=== PATIENT | male | born 1970 | race Caucasian/White ===

== ENCOUNTER 2023-06-25 21:17 | Emergency (ER) | payer BC ==
[2023-06-25] MEDS ORDERED: TENECTEPLASE 50 MG/10 ML VIAL IV ONE (21:45)
--- NOTE | 2023-06-25 21:47 | EDPHYS ---
Physician Documentation [facility] Name: Joel Rodríguez Age: 53 yrs Sex: Male : 1970 Arrival Date: 06/25/2023 Time: 21:17 Bed 2 Private MD: ED Physician Kp Bowman HPI: 06/25 21:22 This 53 yrs old Male presents to ER via Unassigned with complaints of chest sp4 pain . 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 . Historical: - Allergies: 21:24 No Known Allergies; as6 - PMHx: 21:24 Hypertensive disorder; Diabetes mellitus; as6 - PSHx: 21:24 None; as6 - Immunization history:: Client reports receiving the 2nd dose of the Covid vaccine, [employer]. - Social history:: Smoking status: Patient denies any tobacco usage or history of. - Family history:: not pertinent. ROS: 21:38 Constitutional: Negative for fever, chills, and weight loss, Cardiovascular: Negative sp4 for palpitations, and edema, Positive chest pain, diaphoresis, dyspnea, generalized weakness 21:38 All other systems are negative. Exam: 21:38 Constitutional: This is a well developed, well nourished patient who is awake, alert, sp4 pale, diaphoretic, unwell uppearting, blood pressure stable Head/Face: Normocephalic, atraumatic. Eyes: Pupils equal round and reactive to light, extra-ocular motions intact. Lids and lashes normal. Conjunctiva and sclera are not injected. Cornea within normal limits. Periorbital areas with no swelling, redness, or edema. ENT: Nares patent. No nasal discharge, no septal abnormalities noted. Tympanic membranes are normal and external auditory canals are clear. Oropharynx with no redness, swelling, or masses, exudates, or evidence of obstruction, uvula midline. Mucous membranes moist. Neck: Trachea midline, no thyromegaly or masses palpated, and no cervical lymphadenopathy. Supple, full range of motion without nuchal rigidity, or vertebral point tenderness. Chest/axilla: Normal chest wall appearance and motion. Nontender with no deformity. No lesions are appreciated. Cardiovascular: Regular rate and rhythm with a normal S1 and S2. No gallops, murmurs, or rubs. Normal PMI, no JVD. No pulse deficits. Respiratory: Lungs have equal breath sounds bilaterally, clear to auscultation and percussion. No rales, rhonchi or wheezes noted. No increased work of breathing, no retractions or nasal flaring. Abdomen/GI: Soft, non-tender, with normal bowel sounds. No distension or tympany. No guarding or rebound. No evidence of tenderness throughout. Back: No spinal tenderness. No costovertebral tenderness. Skin: Warm, with normal turgor. Pale, diaphoretic, no lesions, and no evidence of cellulitis. MS/ Extremity: Pulses equal, no cyanosis. Neurovascular intact. Full, normal range of motion. Neuro: Awake and alert, GCS 15, oriented to person, place, time, and situation. Cranial nerves II-XII grossly intact. Motor strength 5/5 in all extremities. Sensory grossly intact. Psych: Awake, alert, with orientation to person, place and time. Behavior, mood, and affect are within normal limits 21:38 ECG was reviewed by the Attending Physician. 21:30 - Positive ST elevation v 1, V2, sp4 V3, V4. Consistent with Anterior STEMI Vital Signs: 21:24 Weight 110.68 kg (R); Height 5 ft. 11 in. (R); Pain 5/10; as6 21:32 BP 157 / 94; cm10 21:36 BP 144 / 93; Pulse 75; Resp 18; Pulse Ox 100% on R/A; cm10 21:45 BP 145 / 100; Pulse 82; Resp 18; Pulse Ox 100% ; cm10 21:51 BP 164 / 102; Pulse 81; Resp 18; Pulse Ox 100% on 2 lpm NC; cm10 21:24 Body Mass Index 34.03 (110.68 kg, 180.34 cm) as6 21:24 Pain Scale: Adult as6 21:51 Pt on O2 for comfort. cm10 MDM: 21:24 Patient medically screened. sp4 21:46 Differential Diagnosis altered mental status, sepsis, flu. Data reviewed: vital signs, sp4 nurses notes, EMS record, lab test result(s), EKG, radiologic studies, plain films. 21:49 Consideration of Admission/Observation Patient was admitted/placed on observation. sp4 Escalation of care including admission/observation considered. Management of patient was discussed with the following: Blanket Cutter Hand: JARETT Parham MD . ED course: Patient presents with acute moderate to severe midsternal chest pain, initial EKG at 2117 revealed no sign of ST elevation. Subsequent EKG at [address] elevations in V1 V2 V3 V4. 1 mm each elevation. TNKase was administered at 0. Repeat EKG reveals persistent ST elevations V1 V2 V3. At this time we will looking into transferring patient secondary to no availability of Copper Etcher at this time at [facility]. I did confirm with monomer recovery operator and I was informed that Copper Etcher is not available at nighttime. At this time looking to send patient to [facility] at [facility] for acute anterior/septal STEMI. . 22:01 ED course: . sp4 22:02 ED course: Aeromedical transport is here at 2. Patient stable for medical transport. sp4 Chest pain is improved after IV morphine. All questions by patient and his family were answered. . 22:13 ED course: Troponin elevated at 84, chest x-ray did not reveal acute pulmonary edema. sp4 But revealed enlargement of cardiac silhouette. 06/25 21:22 Order name: Basic Metabolic Panel; Complete Time: 22:12 sp4 06/25 21:22 Order name: CBC with Diff; Complete Time: 22:12 sp4 06/25 21:22 Order name: LFT's; Complete Time: 22:12 sp4 06/25 21:22 Order name: Magnesium; Complete Time: 22:12 sp4 06/25 21:22 Order name: NT PRO-BNP; Complete Time: 22:12 sp4 06/25 21:22 Order name: PT-INR; Complete Time: 22:12 sp4 06/25 21:22 Order name: Troponin HS; Complete Time: 22:12 sp4 06/25 21:22 Order name: XRAY Chest (1 view); Complete Time: 03:56 sp4 06/25 21:22 Order name: EKG; Complete Time: 21:23 sp4 06/25 21:22 Order name: Cardiac monitoring; Complete Time: 21:31 sp4 06/25 21:22 Order name: EKG - Nurse/Tech; Complete Time: 21:27 sp4 06/25 21:22 Order name: IV Saline Lock; Complete Time: 21:27 sp4 06/25 21:22 Order name: Labs collected and sent; Complete Time: 21:31 sp4 06/25 21:22 Order name: O2 Per Protocol; Complete Time: : sp4 06/25 21:22 Order name: O2 Sat Monitoring; Complete Time: :27 sp4 EC:38 Rate is 73 beats/min. Rhythm is regular, Sinus Rhythm. QRS [place] is Normal. QT interval sp4 is normal. ST Segment is elevated in leads V1, V2, V3, V4, 1-2mm. Clinical impression: Anterior VA - acute. Interpreted by me. Reviewed by me. Administered Medications: 21:40 Drug: Tenecteplase IV 50 mg {Co-Signature: nikunj (Amber Madden RN).} Route: IV; as6 Rate: bolus; Site: right forearm; 22:17 Follow up: Response: No adverse reaction cm10 22:18 Follow up: Response: No adverse reaction; IV Intake: 10ml cm10 22:18 Follow up: IV Status: Completed infusion cm10 21:45 Drug: NS 0.9% IV 1000 ml Route: IV; Rate: 1 bolus; Site: right forearm; as6 22:17 Follow up: Response: No adverse reaction; IV Status: Completed infusion; IV Intake: cm10 500ml 21:45 Drug: morphine IVP or IV 4 mg Route: IVP; Infused Over: 4 mins; Site: right forearm; as6 22:17 Follow up: Response: No adverse reaction cm10 21:45 Drug: Ondansetron IVP 4 mg Route: IVP; Site: right forearm; as6 22:17 Follow up: Response: No adverse reaction cm10 22:00 Drug: morphine IVP or IV 4 mg Route: IVP; Infused Over: 4 mins; Site: left antecubital; cm10 22:17 Follow up: Response: No adverse reaction cm10 22:00 Drug: Ondansetron IVP 4 mg Route: IVP; Site: left antecubital; cm10 22:17 Follow up: Response: No adverse reaction cm10 Disposition Summary: 06/25/23 21:46 Transfer Ordered Transfer Location: [facility] sp4 Reason: Higher level of care sp4 Condition: Stable sp4 Problem: new sp4 Symptoms: have improved sp4 Accepting Physician: [facility] Main (06/25/23 22:22) cm10 Diagnosis - ST elevation (STEMI) myocardial infarction involving left anterior descending sp4 coronary artery Forms: - Medication Reconciliation Form sp4 - SBAR form sp4 Critical care time excluding procedures: 21:49 Critical care time: Bedside Care: 36 minutes, Consultation: 12 minutes, Family sp4 Intervention: 12 minutes. Total time: 60 minutes Signatures: Dispatcher [employer] EDNicanor Rehman RN RN as6 Kp Bowman MD MD sp4 Amber Madden RN RN cm10 Amber Madden RN cm10 Corrections: (The following items were deleted from the chart) 22:22 21:46 [facility] sp4 cm10
--- NOTE | 2023-06-25 21:47 | ER ---
Nurse's Notes [facility] Name: Joel Rodríguez Age: 53 yrs Sex: Male : 1970 Arrival Date: 06/25/2023 Time: 21:17 Bed 2 Private MD: Diagnosis: ST elevation (STEMI) myocardial infarction involving left anterior descending coronary artery Presentation: 06/25 21:24 Chief complaint: EMS states: chest pain that started this evening. Coronavirus screen: as6 At this time, the client does not indicate any symptoms associated with coronavirus-19. Ebola Screen: No symptoms or risks identified at this time. Initial Sepsis Screen: Does the patient meet any 2 criteria? No. Patient's initial sepsis screen is negative. Does the patient have a suspected source of infection? No. Patient's initial sepsis screen is negative. Risk Assessment: Do you want to hurt yourself or someone else? Patient reports no desire to harm self or others. Onset of symptoms was June 25, 2023. Care prior to arrival: Medication(s) given: ASA, 81 mg, x 4, Nitroglycerin, 0.4 mg SL x 1, IV initiated. 20 GA, in the left antecubital area. 21:24 Acuity: LATRICE 2 as6 21:24 Method Of Arrival: EMS: [facility] as6 Triage Assessment: 21:32 General: Appears in no apparent distress. Behavior is calm, cooperative. Pain: cm10 Complains of pain in left sided chest Quality of pain is described as aching, Pain began suddenly. Neuro: No deficits noted. Level of Consciousness is awake, alert, obeys commands, Oriented to person, place, time, situation. Cardiovascular: Chest pain. Cardiovascular:. Respiratory: No deficits noted. Derm: Skin is clammy, diaphoretic. Historical: - Allergies: 21:24 No Known Allergies; as6 - PMHx: 21:24 Hypertensive disorder; Diabetes mellitus; as6 - PSHx: 21:24 None; as6 - Immunization history:: Client reports receiving the 2nd dose of the Covid vaccine, [employer]. - Social history:: Smoking status: Patient denies any tobacco usage or history of. - Family history:: not pertinent. Screenin:00 [facility] ED Fall Risk Assessment (Adult) History of falling in the last 3 months, cm10 including since admission No falls in past 3 months (0 pts) Confusion or Disorientation No (0 pts) Intoxicated or Sedated No (0 pts) Impaired Gait No (0 pts) Mobility Assist Device Used No (0 pt) Altered Elimination No (0 pt) Score/Fall Risk Level 0 - 2 = Low Risk Oriented to surroundings, Maintained a safe environment, Hourly rounding (assess needs \T\ fall precautionary measures) done. Abuse screen: Denies threats or abuse. Denies injuries from another. Nutritional screening: No deficits noted. Nutritional screening: No deficits noted. Tuberculosis screening: No symptoms or risk factors identified. Assessment: 21:25 Cardiovascular:. cm10 21:56 Reassessment: Pt reports that his chest pain has not improved. cm10 22:00 Reassessment: [facility] at bedside at this time. Report given to Jr. cm10 22:01 General: attempted to call report, no answer. as6 22:12 Reassessment: Pt leaving via [facility] at this time. Pt's family aware that patient nikunj is to be transferred to [facility] [place], [place]. 22:16 Reassessment: Report given to THAD Cuevas at [facility]. cm10 Vital Signs: 21:24 Weight 110.68 kg (R); Height 5 ft. 11 in. (R); Pain 5/10; as6 21:32 BP 157 / 94; cm10 21:36 BP 144 / 93; Pulse 75; Resp 18; Pulse Ox 100% on R/A; cm10 21:45 BP 145 / 100; Pulse 82; Resp 18; Pulse Ox 100% ; cm10 21:51 BP 164 / 102; Pulse 81; Resp 18; Pulse Ox 100% on 2 lpm NC; cm10 21:24 Body Mass Index 34.03 (110.68 kg, 180.34 cm) as6 21:24 Pain Scale: Adult as6 21:51 Pt on O2 for comfort. cm10 ED Course: 21:21 Patient arrived in ED. rv1 21:22 Kp Bowman MD is Attending Physician. sp4 21:24 Arm band placed on. as6 21:25 Client placed on continuous cardiac and pulse oximetry monitoring. NIBP monitoring cm10 applied. 21:27 Triage completed. as6 21:31 Inserted saline lock: 18 gauge in right forearm, using aseptic technique. Blood as6 collected. Maintain EMS IV. Dressing intact. Good blood return noted. Site clean \T\ dry. Gauge \T\ site: 20g LAC. 21:[address] [facility], No Answer. rv1 21:[address] [facility], No Answer. rv1 21:39 Initiated transfer with Carmen at [facility]. rv1 21:40 Oxygen administration via nasal cannula \T\ 2L/min Response to oxygen therapy:. cm10 21:45 Patient has correct armband on for positive identification. Call light in reach. Side cm10 rails up X2. Provided Education on: Need for transfer to another facility. . 21:56 XRAY Chest (1 view) In Process Unspecified. EDMS 21:56 Pt accepted to [facility] [place] [place] by Dr. Landeros. rv1 22:21 No provider procedures requiring assistance completed. Patient transferred, IV remains cm10 in place. Administered Medications: 21:40 Drug: Tenecteplase IV 50 mg {Co-Signature: cm10 (Amber Madden RN).} Route: IV; as6 Rate: bolus; Site: right forearm; 22:17 Follow up: Response: No adverse reaction cm10 22:18 Follow up: Response: No adverse reaction; IV Intake: 10ml cm10 22:18 Follow up: IV Status: Completed infusion cm10 21:45 Drug: NS 0.9% IV 1000 ml Route: IV; Rate: 1 bolus; Site: right forearm; as6 22:17 Follow up: Response: No adverse reaction; IV Status: Completed infusion; IV Intake: cm10 500ml 21:45 Drug: morphine IVP or IV 4 mg Route: IVP; Infused Over: 4 mins; Site: right forearm; as6 22:17 Follow up: Response: No adverse reaction cm10 21:45 Drug: Ondansetron IVP 4 mg Route: IVP; Site: right forearm; as6 22:17 Follow up: Response: No adverse reaction cm10 22:00 Drug: morphine IVP or IV 4 mg Route: IVP; Infused Over: 4 mins; Site: left antecubital; cm10 22:17 Follow up: Response: No adverse reaction cm10 22:00 Drug: Ondansetron IVP 4 mg Route: IVP; Site: left antecubital; cm10 22:17 Follow up: Response: No adverse reaction cm10 Medication: 22:21 VIS not applicable for this client. cm10 Intake: 22:17 IV: 500ml; Total: 500ml. cm10 22:18 IV: 10ml; Total: 510ml. cm10 Outcome: 21:46 ER care complete, transfer ordered by . spJohn 22:21 Transferred by helicopter to [facility] [place] [place], Transfer form completed. X-rays sent cm10 w/ patient. 22:21 Condition: stable 22:21 Instructed on the need for transfer. 22:22 Patient left the ED. cm10 Signatures: Dispatcher [employer] EDNicanor Rehman RN RN as6 Kenna Crespo rv1 Kp Bowman MD MD sp4 Amber Madden, THAD RN cm10 Amber Madden RN cm10
[2023-06-25 21:53] LABS: Absolute Lymphocytes (CBC) 3.5 K/uL (0.7-4.9); Hematocrit 46.1 % (39.6-49.0); Lymphocytes % 29.4 % (15.3-44.8); MCV 88.9 fL (80-100); MPV 8.5 fL (7.6-11.3); Platelets 312 thou/uL (152-406); RBC Red Blood Cell Count 5.19 M/uL (4.33-5.43)
[2023-06-25] MEDS ORDERED: ONDANSETRON 4 MG/2 ML VIAL ONE ×2 (21:53→22:10)
[2023-06-25] MEDS ORDERED: MORPHINE 4 MG/ML SYR ONE ×2 (21:53→22:10)
[2023-06-25] MEDS ORDERED: NA CHLORIDE 0.9% 1,000 ML ONE (21:54)
[2023-06-25 21:57] LABS: Albumin 3.7 g/dL (3.4-5.0); Bilirubin Direct 0.2 mg/dL (0-0.2); Bilirubin Indirect, Calculated 0.3 mg/dL (0.2-0.8); Bilirubin Total 0.5 mg/dL (0.2-1.0); Magnesium 1.8 mg/dL (1.6-2.4); Potassium 3.7 mEq/L (3.5-5.1)
[2023-06-25 21:58] LABS: Protime INR 1.1
[2023-06-25 22:10] LABS: Troponin High Sensitivity 84.3 pg/mL (<58.9)
--- NOTE | 2023-06-25 22:18 | RAD REPORT ---
EXAM DESCRIPTION: Muriel Single View06/25/2023 9:54 pm CLINICAL HISTORY: CHEST PAIN COMPARISON: No comparisons TECHNIQUE: Portable AP view of the chest. FINDINGS: The lungs are clear. Decreased inspiratory effort somewhat limits evaluation. No pneumotho rax or effusion. The cardiomediastinal contours are unremarkable. IMPRESSION: No acute cardiopulmonary process.
[2023-06-25 22:49] VITALS: O2SAT 100
[2023-06-25 22:50] VITALS: BP 157/94
--- NOTE | 2023-06-26 14:54 | EKG ---
Test Date: 2023-06-25 Test Time: 21:18:36 Server Assistant: ASHLEY MEASUREMENT RESULTS: Intervals: Rate: 66 NC: 150 QRSD: 86 QT: 386 QTc: 404 [place]: P: 18 NC: 150 QRS: -24 T: 12 INTERPRETIVE STATEMENTS: Normal sinus rhythm Cannot rule out Anterior infarct, age undetermined Abnormal ECG No previous ECG available for comparison Electronically Signed On 06-26-23 14:53:20 CDT by Alcon Fisher
--- NOTE | 2023-06-26 14:54 | EKG ---
Test Date: 2023-06-25 Test Time: 21:30:50 [place] Operator: ASHLEY MEASUREMENT RESULTS: Intervals: Rate: 73 IN: 142 QRSD: 82 QT: 378 QTc: 416 [place]: P: 11 IN: 142 QRS: -17 T: -10 INTERPRETIVE STATEMENTS: Normal sinus rhythm ST elevation, consider anterior injury or acute infarct ACUTE AK / STEMI Abnormal ECG No previous ECG available for comparison Electronically Signed On 06-26-23 14:53:09 CDT by Alcon Fisher
--- NOTE | 2023-06-26 14:54 | EKG ---
Test Date: 2023-06-25 Test Time: 21:30:11 Social Work Lecturer: ASHLEY MEASUREMENT RESULTS: Intervals: Rate: 74 AK: 138 QRSD: 82 QT: 374 QTc: 415 [place]: P: 8 AK: 138 QRS: -21 T: -18 INTERPRETIVE STATEMENTS: Normal sinus rhythm Inferior infarct, age undetermined Anterior injury pattern ACUTE MD / STEMI Abnormal ECG Compared to ECG 06/25/2023 21:18:36 No significant changes Electronically Signed On 06-26-23 14:53:14 CDT by Alcno Fisher
--- NOTE | 2023-06-26 14:54 | EKG ---
Test Date: 2023-06-25 Test Time: 21:40:57 Sole Molding Machine Operator: ASHLEY MEASUREMENT RESULTS: Intervals: Rate: 75 MO: 134 QRSD: 82 QT: 376 QTc: 419 [place]: P: 22 MO: 134 QRS: -22 T: -12 INTERPRETIVE STATEMENTS: Normal sinus rhythm ST elevation, consider anterior injury or acute infarct ACUTE SD / STEMI Abnormal ECG Compared to ECG 06/25/2023 21:30:50 No significant changes Electronically Signed On 06-26-23 14:53:06 CDT by Alcon Fisher
== END 2023-06-25 22:22 | disposition short-term general hospital (02) ==
LOC: ER 21:17
DX: I21.09 ST elevation (STEMI) myocardial infarction involving other coronary artery of anterior wall (principal); E11.9 Type 2 diabetes mellitus without complications; I10 Essential (primary) hypertension
CPT/HCPCS: 92977; 93005 ×4; 85025; 80048; 36415; 83735; 85610; 80076; 84484; 83880; 71045; 99285; J3101; J2405 ×2; J7030

== ENCOUNTER 2024-06-15 17:15 | Emergency (ER) | payer OTHER ==
[2024-06-15] MEDS ORDERED: TENECTEPLASE 50 MG/10 ML VIAL IV ONE (17:35)
[2024-06-15 17:41] LABS: Absolute Basophils 0.1 K/uL (0-0.5); Absolute Eosinophils 0.3 K/uL (0-0.5); Absolute Monocytes 0.7 K/uL (0.1-1.3); Absolute Neutrophil 5.1 K/uL (1.8-8.0); Basophils % 0.6 % (0-1.3); Eosinophils % 3.6 % (0-4.4); Hematocrit 46.9 % (39.6-49.0); Hemoglobin 15.8 g/dL (13.6-17.9); Lymphocytes % 33.1 % (15.3-44.8); MCH 30.8 pg (27.0-35.0); MCHC 33.7 g/dL (32.0-36.0); MCV 91.5 fL (80-100); MPV 7.8 fL (7.6-11.3); Monocytes % 7.7 % (3.3-12.3); Platelets 267 thou/uL (152-406); RBC Red Blood Cell Count 5.12 M/uL (4.33-5.43); Red Cell Distribution Width 14.2 % (12.1-15.2)
--- NOTE | 2024-06-15 17:47 | RAD REPORT ---
EXAM DESCRIPTION: CT - Ct Stroke Brain Wo Cont - 06/15/2024 5:41 pm CLINICAL HISTORY: STROKE ALERT COMPARISON: No comparisons TECHNIQUE: All CT scans are performed using dose optimization technique as appropriate and may inclu de automated exposure control or mA/KV adjustment according to patient size. FINDINGS: No intracranial hemorrhage, hydrocephalus or extra-axial fluid collection.No areas of brai n edema or evidence of midline shift. Near complete opacification of the right maxillary sinus. Several ethmoid air cells are opacified bartolo aterally . The calvarium is intact. IMPRESSION: No acute intracranial abnormality. Discussed with Dr. Lawler by Dr. Vergara at [id number] on 06/15/24
[2024-06-15 17:48] LABS: PT Prothrombin Time 11.9 SECONDS (9.4-12.5); PTT, Activated Partial Thromb 38.8 SECONDS (24.3-36.9); Protime INR 1.06
[2024-06-15 17:58] LABS: Albumin 3.7 g/dL (3.4-5.0); Albumin/Globulin Ratio 1.1 (1.1-1.8); Anion Gap 6.9 mEq/L (5.0-15.0); Bilirubin Direct 0.3 mg/dL (0-0.2); Bilirubin Indirect, Calculated 0.5 mg/dL (0.2-0.8); Bilirubin Total 0.8 mg/dL (0.2-1.0); Globulin 3.4 g/dL (2.3-3.5); Potassium 3.9 mEq/L (3.5-5.1); Protein, Total 7.1 g/dL (6.4-8.2); Troponin High Sensitivity 4.9 pg/mL (<58.9)
--- NOTE | 2024-06-15 18:09 | RAD REPORT ---
EXAM DESCRIPTION: RAD - Chest Single View - 06/15/2024 5:53 pm CLINICAL HISTORY: cva COMPARISON: Chest Single View dated 06/25/2023 FINDINGS: Lines: None. Lungs: No evidence of edema or pneumonia. Pleural: No significant pleural effusions or pneumothorax. Cardiac: Similar size and configuration. Mediastinum: Within normal limits. Bones: No acute fractures. Other: None IMPRESSION: No acute cardiopulmonary disease.
--- NOTE | 2024-06-15 18:49 | RAD REPORT ---
EXAM DESCRIPTION: CT - Neck Angio - 06/15/2024 6:37 pm CLINICAL HISTORY: stroke alert COMPARISON: No comparisons TECHNIQUE: CT angiography of the neck vessels was performed with maximum intensity reformatted image s. CAROTID STENOSIS REFERENCE USING NASCET CRITERIA: Mild - <50% stenosis. Moderate - 50-69% stenosis. Severe - 70-94% stenosis. Near occlusion - 95-99% stenosis. Occluded - 100% stenosis. All CT scans are performed using dose optimization technique as appropriate and may include automated exposure control or mA/KV adjustment according to patient size. FINDINGS: A left aortic arch is identified with normal three vessel configuration of the great vesse ls. No significant flow abnormality is seen of the common carotid bilaterally. Severe (70-94%) stenosis of the right proximal ICA secondary to bulky calcified and noncalcified plaq ue. Moderate (50-69%) stenosis of the left proximal ICA. Prominent retrograde flow of contrast into the paraspinal veins obscures portions of the the vertebra l arteries. The visualized portions are patent. IMPRESSION: 1. Severe (70-94%) stenosis of the right proximal ICA. 2. Moderate left proximal ICA stenosis. 3. The bilateral vertebral arteries are grossly patent but segments are obscured by dense adjacent ve nous contrast.
--- NOTE | 2024-06-15 18:52 | RAD REPORT ---
EXAM DESCRIPTION: CT - Head angio - 06/15/2024 6:37 pm CLINICAL HISTORY: WEAKNESS, DIZZINESS COMPARISON: Ct Stroke Brain Wo Cont dated 06/15/2024 TECHNIQUE: CT angiography of the head was performed with maximum intensity reformatted images. 3D ma ximum intensity pixel (MIP) reconstructions were created All CT scans are performed using dose optimization technique as appropriate and may include automated exposure control or mA/KV adjustment according to patient size. FINDINGS: Anterior circulation: No aneurysm or large vessel occlusion. No hemodynamically significant stenosis. No arteriovenous malf ormation identified. Hypoplastic left A1 segment. Posterior circulation: Severe right distal vertebral artery stenosis versus anatomic variant of diminutive vertebral artery. The left vertebral artery is patent. The basilar artery is patent. The posterior cerebral arteries a re patent . IMPRESSION: No definite significant flow abnormality is detected. Long segment stenosis of the right intracranial vertebral artery versus anatomic variant with diminutive caliber. The latter is favored .
--- NOTE | 2024-06-15 19:16 | ER ---
Nurse's Notes [facility] Name: Joel Rodríguez Age: 54 yrs Sex: Male : 1970 Arrival Date: 06/15/2024 Time: 17:15 Bed 20 Private MD: Diagnosis: Acute CVA;Severe carotid stenosis Presentation: 06/15 17:16 Chief complaint: EMS states: Pt toned out EMS for sudden onset left sided weakness and rs5 dizziness. 17:16 Coronavirus screen: At this time, the client does not indicate any symptoms associated rs5 with coronavirus-19. Ebola Screen: No symptoms or risks identified at this time. An acute neurological deficit is present. The charge nurse has been notified. The patient has been moved to a treatment area. The patients blood glucose was checked before arriving to the hospital and was found to be normal. Initial Sepsis Screen: Does the patient meet any 2 criteria? No. Patient's initial sepsis screen is negative. Does the patient have a suspected source of infection? No. Patient's initial sepsis screen is negative. Risk Assessment: Do you want to hurt yourself or someone else? Patient reports no desire to harm self or others. Onset of symptoms was June 15, 2024. 17:16 Method Of Arrival: EMS: [facility] 17:16 Acuity: LATRICE 2 rs5 17:17 Care prior to arrival: IV initiated. 18 GA, in the left antecubital area. rs5 Triage Assessment: 19:01 The onset of the patients symptoms was June 15, 2024 at 14:45. pc2 Stroke Activation: Physician: ED Attending; Name: Nuris; Notified At: ; Arrived At: Physician: Mid-Level Provider; Name: Gene Garces; Notified At: ; Arrived At: Physician: [not used]; Name: ; Notified At: ; Arrived At: Physician: [not used]; Name: ; Notified At: ; Arrived At: Physician: [not used]; Name: ; Notified At: ; Arrived At: Historical: - Allergies: 17:17 No Known Allergies; rs5 - PMHx: 17:44 diabetes mellitus; Hypertensive disorder; tm6 17:16 Myocardial infarction; rs5 - PSHx: 17:17 None; rs5 - Immunization history:: Adult Immunizations up to date. - Infectious Disease History:: Denies. - Social history:: Smoking status: Patient denies any tobacco usage or history of. - Family history:: not pertinent. Screenin:44 [facility] ED Fall Risk Assessment (Adult) History of falling in the last 3 months, tm6 including since admission No falls in past 3 months (0 pts) Confusion or Disorientation No (0 pts) Intoxicated or Sedated No (0 pts) Impaired Gait No (0 pts) Mobility Assist Device Used No (0 pt) Altered Elimination No (0 pt) Score/Fall Risk Level 0 - 2 = Low Risk Oriented to surroundings, Maintained a safe environment, Educated pt \T\ family on fall prevention, incl call for assistance when getting out of bed. Abuse screen: Denies threats or abuse. Denies injuries from another. Nutritional screening: No deficits noted. Tuberculosis screening: No symptoms or risk factors identified. Assessment: 17:16 General: Appears in no apparent distress. uncomfortable, Behavior is calm, cooperative. rs5 Pain: Denies pain. Neuro: Level of Consciousness is awake, alert, obeys commands, Oriented to person, place, time, situation, Reports dizziness. Neuro: [employer] are equal bilaterally Moves all extremities. Weakness in left leg(s) foot/feet Speech is normal, Facial symmetry appears normal, Pupils are PERRLA, Pupil Size: 3 mm Intact. Cardiovascular: Patient's skin is warm and dry. Respiratory: Airway is patent Respiratory effort is even, unlabored, Respiratory pattern is regular, symmetrical. GI: Abdomen is round non-distended, Abd is soft and non tender X 4 quads. : No signs and/or symptoms were reported regarding the genitourinary system. EENT: No signs and/or symptoms were reported regarding the EENT system. Derm: Skin is intact, Skin is pink, warm \T\ dry. Musculoskeletal: Range of motion: intact in all extremities. 17:20 VAN Scoring: Arm Drift: Minor drift Visual Disturbance: No visual disturbance noted. rs5 Aphasia: No aphasia noted. Neglect: No neglect noted. TNKase (Tenecteplase) Screening: Indications: Definite evidence of stroke, ischemic, embolic, or hypertensive: Yes. Treatment will start within 4.5 hours onset of symptoms: Yes. No evidence of intracranial hemorrhage or CT of head and no evidence of peripheral hemorrhage or recent CVA: Yes. Consent for thrombolytic therapy: Yes. 17:21 Reassessment: to bedside, TNK consent form signed by pt and provider . rs5 17:53 Henderson Swallow Protocol 3 oz Water Swallow Challenge:. rs5 17:54 Henderson Swallow Protocol Exclusion Criteria: Unable to remain alert for testing: No NPO rs5 for medical/surgical reason by provider order No Head-of-bed restricted <30 degrees Tracheostomy tube present No No thin liquids due to preexisting dysphagia/baseline modified diet thickened liquids No Exclusion Criteria Result: Proceed Brief Cognitive Screen What is your name? Normal, Where are you right now? Normal, What year is it? Normal. Oral Mechanism Examination Facial Symmetry: Normal, Motion: Normal, Lip Closure: Normal, Oral Mechanism Result: Normal. Result: MIRZA MENON Notified: Vahe Lawler MD. 17:56 Reassessment: No changes from previously documented assessment. Patient and/or family rs5 updated on plan of care and expected duration. Pain level reassessed. Patient is alert, oriented x 3, equal unlabored respirations, skin warm/dry/pink. 19:10 General: Appears in no apparent distress. comfortable, well groomed, Behavior is calm, pc2 cooperative, appropriate for age. 19:10 Pain: Denies pain. Neuro: Level of Consciousness is awake, alert, obeys commands, pc2 Oriented to person, place, time, situation, [employer] are equal bilaterally Moves all extremities. Gait is steady, Speech is normal, Facial symmetry appears normal, Pupils are PERRLA, Intact paresthesias in left leg Denies dizziness. Cardiovascular: Patient's skin is warm and dry. Respiratory: Airway is patent Respiratory effort is even, unlabored, Respiratory pattern is regular, symmetrical. GI: Abdomen is non-distended, Abd is soft and non tender. : No signs and/or symptoms were reported regarding the genitourinary system. EENT: No signs and/or symptoms were reported regarding the EENT system. Derm: Skin is pink, warm \T\ dry. Musculoskeletal: Range of motion: intact in all extremities. 19:14 Reassessment: Patient and/or family updated on plan of care and expected duration. Pain rs5 level reassessed. Patient is alert, oriented x 3, equal unlabored respirations, skin warm/dry/pink. Vital Signs: 17:16 BP 147 / 88; Pulse 77; Resp 17; Temp 97.9(O); Pulse Ox 99% ; rs5 17:43 Weight 103.2 kg (M); tm6 19:10 BP 130 / 96; Pulse 75; Resp 18; Pulse Ox 100% on R/A; pc2 19:16 BP 147 / 94; Pulse 70; pc2 19:31 BP 147 / 93; Pulse 72; pc2 19:46 BP 142 / 95; Pulse 77; pc2 20:01 BP 144 / 98; Pulse 82; pc2 20:31 BP 137 / 96; Pulse 78; pc2 NIH Stroke Scale Scores: 17:16 NIHSS Score: 1 rs5 19:01 NIHSS Score: 1 pc2 19:16 NIHSS Score: 1 pc2 19:31 NIHSS Score: 1 pc2 19:46 NIHSS Score: 1 pc2 20:31 NIHSS Score: 1 pc2 ED Course: 17:16 Patient arrived in ED. mr 17:18 Vahe Lawler MD is Attending Physician. rt 17:22 Gene Garces RN is Primary Nurse. rs5 17:36 EKG done, by ED staff, reviewed by Vahe Lawler MD. tm6 17:41 Maintain EMS IV. Dressing intact. Good blood return noted. Site clean \T\ dry. Gauge \T\ tm 6 site: 20g LAC. Flushed with 10 mL NS. 17:43 CT Stroke Brain w/o Contrast In Process Unspecified. EDMS 17:44 Patient has correct armband on for positive identification. Placed in gown. Bed in low tm6 position. Call light in reach. Side rails up X2. Provided Education on: use of call dorantes; TNK. Client placed on continuous cardiac and pulse oximetry monitoring. NIBP monitoring applied. monitoring analyst on. Pulse ox on. NIBP on. Noise minimized. Warm blanket given. 17:50 Triage completed. rs5 17:54 Stroke CXR 1 View In Process Unspecified. EDMS 17:55 No provider procedures requiring assistance completed. rs5 18:38 CT Neck Angio In Process Unspecified. EDMS 18:38 Head angio In Process Unspecified. EDMS 19:00 Arm band placed on right wrist. pc2 19:18 Initiated transfer with Bekah at [facility]. rv1 19:[address] Valdivia to [facility] ER. rv1 20:00 Report given to Yonatan, RN receiving patient to [facility] ER. pc2 20:08 Called Yaritza with [employer] for truck, given 25-30 min ETA. rv1 20:50 Patient transferred, IV remains in place. pc2 Administered Medications: 17:46 Drug: TNK FOR STROKE - Tenecteplase IV (Administer 10 ml NS flush BEFORE and rs5 AFTER tenecteplase) 0.25 mg/kg IV at per protocol once; MAX DOSE 25 mg, IVP over 5 seconds {Co-Signature: tl4 (Marty Galvez RN).} Route: IV; Rate: per protocol; Site: left antecubital; 19:01 Follow up: Response: Marked relief of symptoms; IV Status: Completed infusion pc2 Medication: 17:45 VIS not applicable for this client. tm6 Point of Care Testing: Blood Glucose: 17:33 Blood Glucose: 98 mg/dL; 6 Ranges: Outcome: 19:16 ER care complete, transfer ordered by MD. rt 20:50 Transferred by ground EMS [place]. to [facility], Transfer form pc2 completed. 20:50 Condition: stable 20:50 Instructed on the need for transfer, Demonstrated understanding of instructions, 20:53 Patient left the ED. pc2 NIH Stroke Scale - NIH Stroke Score Date: 06/15/2024 Time: 17:16 Total Score = 1 10. Dysarthria (speech clarity - read or repeat words) - 0(Normal) 11. Extinction and Inattention (visual/tactile/auditory/spatial/personal) - 0(No abnormality) 1a. Level of Consciousness (LOC) - 0(Alert) 1b. Level of Consciousness (LOC) (Month \T\ Age) - 0(Both) 1c. LOC Commands (Open \T\ Closes Eyes/Soakers Supervisor) - 0(Both) 2. Best Gaze (Lateral Gaze Paresis) - 0(Normal) 3. Visual Field Loss - 0(No visual loss) 4. Facial Palsy - 0(Normal) 5a. Left Arm: Motor (10-second hold) - 0(No drift) 5b. Right Arm: Motor (10-second hold) - 0(No drift) 6a. Left Leg: Motor (5-second hold - always test supine) - 1(Drift) 6b. Right Leg: Motor (5-second hold - always test supine) - 0(No drift) 7. Limb Ataxia (finger/nose \T\ heel/buchanan - test with eyes open) - 0(Absent) 8. Sensory Loss (pinprick arms/legs/face) - 0(Normal) 9. Best Language: Aphasia (description/naming/reading) - 0(No aphasia) Initials: rs5 NIH Stroke Scale - NIH Stroke Score Date: 06/15/2024 Time: 19:01 Total Score = 1 10. Dysarthria (speech clarity - read or repeat words) - 0(Normal) 11. Extinction and Inattention (visual/tactile/auditory/spatial/personal) - 0(No abnormality) 1a. Level of Consciousness (LOC) - 0(Alert) 1b. Level of Consciousness (LOC) (Month \T\ Age) - 0(Both) 1c. LOC Commands (Open \T\ Closes Eyes/Soakers Supervisor) - 0(Both) 2. Best Gaze (Lateral Gaze Paresis) - 0(Normal) 3. Visual Field Loss - 0(No visual loss) 4. Facial Palsy - 0(Normal) 5a. Left Arm: Motor (10-second hold) - 0(No drift) 5b. Right Arm: Motor (10-second hold) - 0(No drift) 6a. Left Leg: Motor (5-second hold - always test supine) - 0(No drift) 6b. Right Leg: Motor (5-second hold - always test supine) - 0(No drift) 7. Limb Ataxia (finger/nose \T\ heel/buchanan - test with eyes open) - 0(Absent) 8. Sensory Loss (pinprick arms/legs/face) - 1(Mild to moderate loss) 9. Best Language: Aphasia (description/naming/reading) - 0(No aphasia) Initials: pc2 NIH Stroke Scale - NIH Stroke Score Date: 06/15/2024 Time: 19:16 Total Score = 1 10. Dysarthria (speech clarity - read or repeat words) - 0(Normal) 11. Extinction and Inattention (visual/tactile/auditory/spatial/personal) - 0(No abnormality) 1a. Level of Consciousness (LOC) - 0(Alert) 1b. Level of Consciousness (LOC) (Month \T\ Age) - 0(Both) 1c. LOC Commands (Open \T\ Closes Eyes/Soakers Supervisor) - 0(Both) 2. Best Gaze (Lateral Gaze Paresis) - 0(Normal) 3. Visual Field Loss - 0(No visual loss) 4. Facial Palsy - 0(Normal) 5a. Left Arm: Motor (10-second hold) - 0(No drift) 5b. Right Arm: Motor (10-second hold) - 0(No drift) 6a. Left Leg: Motor (5-second hold - always test supine) - 0(No drift) 6b. Right Leg: Motor (5-second hold - always test supine) - 0(No drift) 7. Limb Ataxia (finger/nose \T\ heel/buchanan - test with eyes open) - 0(Absent) 8. Sensory Loss (pinprick arms/legs/face) - 1(Mild to moderate loss) 9. Best Language: Aphasia (description/naming/reading) - 0(No aphasia) Initials: pc2 NIH Stroke Scale - NIH Stroke Score Date: 06/15/2024 Time: 19:31 Total Score = 1 10. Dysarthria (speech clarity - read or repeat words) - 0(Normal) 11. Extinction and Inattention (visual/tactile/auditory/spatial/personal) - 0(No abnormality) 1a. Level of Consciousness (LOC) - 0(Alert) 1b. Level of Consciousness (LOC) (Month \T\ Age) - 0(Both) 1c. LOC Commands (Open \T\ Closes Eyes/Soakers Supervisor) - 0(Both) 2. Best Gaze (Lateral Gaze Paresis) - 0(Normal) 3. Visual Field Loss - 0(No visual loss) 4. Facial Palsy - 0(Normal) 5a. Left Arm: Motor (10-second hold) - 0(No drift) 5b. Right Arm: Motor (10-second hold) - 0(No drift) 6a. Left Leg: Motor (5-second hold - always test supine) - 0(No drift) 6b. Right Leg: Motor (5-second hold - always test supine) - 0(No drift) 7. Limb Ataxia (finger/nose \T\ heel/buchanan - test with eyes open) - 0(Absent) 8. Sensory Loss (pinprick arms/legs/face) - 1(Mild to moderate loss) 9. Best Language: Aphasia (description/naming/reading) - 0(No aphasia) Initials: pc2 NIH Stroke Scale - NIH Stroke Score Date: 06/15/2024 Time: 19:46 Total Score = 1 10. Dysarthria (speech clarity - read or repeat words) - 0(Normal) 11. Extinction and Inattention (visual/tactile/auditory/spatial/personal) - 0(No abnormality) 1a. Level of Consciousness (LOC) - 0(Alert) 1b. Level of Consciousness (LOC) (Month \T\ Age) - 0(Both) 1c. LOC Commands (Open \T\ Closes Eyes/Soakers Supervisor) - 0(Both) 2. Best Gaze (Lateral Gaze Paresis) - 0(Normal) 3. Visual Field Loss - 0(No visual loss) 4. Facial Palsy - 0(Normal) 5a. Left Arm: Motor (10-second hold) - 0(No drift) 5b. Right Arm: Motor (10-second hold) - 0(No drift) 6a. Left Leg: Motor (5-second hold - always test supine) - 0(No drift) 6b. Right Leg: Motor (5-second hold - always test supine) - 0(No drift) 7. Limb Ataxia (finger/nose \T\ heel/buchanan - test with eyes open) - 0(Absent) 8. Sensory Loss (pinprick arms/legs/face) - 1(Mild to moderate loss) 9. Best Language: Aphasia (description/naming/reading) - 0(No aphasia) Initials: pc2 NIH Stroke Scale - NIH Stroke Score Date: 06/15/2024 Time: 20:31 Total Score = 1 10. Dysarthria (speech clarity - read or repeat words) - 0(Normal) 11. Extinction and Inattention (visual/tactile/auditory/spatial/personal) - 0(No abnormality) 1a. Level of Consciousness (LOC) - 0(Alert) 1b. Level of Consciousness (LOC) (Month \T\ Age) - 0(Both) 1c. LOC Commands (Open \T\ Closes Eyes/Soakers Supervisor) - 0(Both) 2. Best Gaze (Lateral Gaze Paresis) - 0(Normal) 3. Visual Field Loss - 0(No visual loss) 4. Facial Palsy - 0(Normal) 5a. Left Arm: Motor (10-second hold) - 0(No drift) 5b. Right Arm: Motor (10-second hold) - 0(No drift) 6a. Left Leg: Motor (5-second hold - always test supine) - 0(No drift) 6b. Right Leg: Motor (5-second hold - always test supine) - 0(No drift) 7. Limb Ataxia (finger/nose \T\ heel/buchanan - test with eyes open) - 0(Absent) 8. Sensory Loss (pinprick arms/legs/face) - 1(Mild to moderate loss) 9. Best Language: Aphasia (description/naming/reading) - 0(No aphasia) Initials: pc2 Signatures: Dispatcher [employer] EDNJ TeoThais, Reg Reg mr Vahe Lawler MD MD rt Kenna Crespo rv1 Gene Garces RN RN rs5 Arias Borges RN RN tm6 Reina Hogan, RN RN pc2 Marty Galvez RN tl4 Corrections: (The following items were deleted from the chart) 17:51 17:44 Infectious Disease History: Denies. tm6 rs5
--- NOTE | 2024-06-15 19:16 | EDPHYS ---
Physician Documentation [facility] Name: Joel Rodríguez Age: 54 yrs Sex: Male : 1970 Arrival Date: 06/15/2024 Time: 17:15 Bed 20 Private MD: ED Physician Vahe Lawler HPI: 06/15 19:36 This 54 yrs old Male presents to ER via EMS with complaints of S/S of Possible Stroke. rt 19:36 Patient presents to the ED with an acute onset of left-sided numbness, weakness rt starting about 20 minutes prior to arrival. Patient denies speech changes, numbness, weakness to the face. Denies other acute complaints at this time, symptoms are moderate severity, no other aggravating or alleviating factors.. Historical: - Allergies: 17:17 No Known Allergies; rs5 - PMHx: 17:44 diabetes mellitus; Hypertensive disorder; tm6 17:16 Myocardial infarction; rs5 - PSHx: 17:17 None; rs5 - Immunization history:: Adult Immunizations up to date. - Infectious Disease History:: Denies. - Social history:: Smoking status: Patient denies any tobacco usage or history of. - Family history:: not pertinent. ROS: 19:41 Constitutional: Negative for fever, chills, and weight loss, Cardiovascular: Negative rt for chest pain, palpitations, and edema, Respiratory: Negative for shortness of breath, cough, wheezing, and pleuritic chest pain, Abdomen/GI: Negative for abdominal pain, nausea, vomiting, diarrhea, and constipation, MS/Extremity: Negative for injury and deformity, Skin: Negative for injury, rash, and discoloration, 19:41 Neuro: Positive for 19:41 Neuro: Positive for Positive for numbness, weakness, Exam: 19:41 Radiologist reports: No intracranial hemorrhage rt 19:41 Constitutional: This is a well developed, well nourished patient who is awake, alert, and in no acute distress. Head/Face: Normocephalic, atraumatic. Eyes: Pupils equal round and reactive to light, extra-ocular motions intact. Lids and lashes normal. Conjunctiva and sclera are non-icteric and not injected. Cornea within normal limits. Periorbital areas with no swelling, redness, or edema. Chest/axilla: Normal chest wall appearance and motion. Nontender with no deformity. No lesions are appreciated. Cardiovascular: Regular rate and rhythm with a normal S1 and S2. No gallops, murmurs, or rubs. Normal PMI, no JVD. No pulse deficits. Respiratory: Lungs have equal breath sounds bilaterally, clear to auscultation and percussion. No rales, rhonchi or wheezes noted. No increased work of breathing, no retractions or nasal flaring. Abdomen/GI: Soft, non-tender, with normal bowel sounds. No distension or tympany. No guarding or rebound. No evidence of tenderness throughout. Skin: Warm, dry with normal turgor. Normal color with no rashes, no lesions, and no evidence of cellulitis. MS/ Extremity: Pulses equal, no cyanosis. Neurovascular intact. Full, normal range of motion. 19:41 ECG was reviewed by the Attending Physician. 19:41 Neuro: Speech normal, cranial nerves II through XII intact, drift noted in the left upper and left lower extremities, strength otherwise intact, minor sensory deficits in the left upper and left lower extremities, sensation otherwise intact, speech normal, Vital Signs: 17:16 BP 147 / 88; Pulse 77; Resp 17; Temp 97.9(O); Pulse Ox 99% ; rs5 17:43 Weight 103.2 kg (M); tm6 19:10 BP 130 / 96; Pulse 75; Resp 18; Pulse Ox 100% on R/A; pc2 19:16 BP 147 / 94; Pulse 70; pc2 19:31 BP 147 / 93; Pulse 72; pc2 19:46 BP 142 / 95; Pulse 77; pc2 20:01 BP 144 / 98; Pulse 82; pc2 20:31 BP 137 / 96; Pulse 78; pc2 NIH Stroke Scale Scores: 17:16 NIHSS Score: 1 rs5 19:01 NIHSS Score: 1 pc2 19:16 NIHSS Score: 1 pc2 19:31 NIHSS Score: 1 pc2 19:46 NIHSS Score: 1 pc2 20:31 NIHSS Score: 1 pc2 MDM: 17:18 Patient medically screened. rt 19:41 TNKase (Tenecteplase) Screening: Indications: Definite evidence of stroke, ischemic, rt embolic, or hypertensive: Yes. Treatment will start within 4.5 hours onset of symptoms: Yes. No evidence of intracranial hemorrhage or CT of head and no evidence of peripheral hemorrhage or recent CVA: Yes. Consent for thrombolytic therapy: Yes. Contraindications: Intracranial hemorrhage and its risk factor and suspicion of subarachnoid bleed: No. Is the patient on Aspirin, Heparin, or Warfarin: No. Active peripheral bleeding/history of intracranial bleeding: No. Recent serious head injury or stroke in the past 3 months: No. Data reviewed: vital signs, nurses notes, lab test result(s), EKG, radiologic studies. Consideration of Admission/Observation Patient requires transfer for higher level of care. I considered the following discharge prescriptions or medication management in the emergency department Medications were administered in the Emergency Department. See MAR. Independent interpretation of the following test(s) in the Emergency Department CT Scan: My interpretation is No intracranial hemorrhage seen on my interpretation of CT scan and. Care significantly affected by the following chronic conditions: Diabetes, Hypertension. Counseling: I had a detailed discussion with the patient and/or guardian regarding the historical points, exam findings, and any diagnostic results supporting the discharge/admit diagnosis, lab results, radiology results, the need to transfer to another facility. Response to treatment: the patient's symptoms have markedly improved after treatment. 06/15 17:19 Order name: Basic Metabolic Panel; Complete Time: 18:00 rt 06/15 17:19 Order name: CBC with Diff; Complete Time: 18:00 rt 06/15 17:19 Order name: Hepatic Function; Complete Time: 18:00 rt 06/15 17:19 Order name: High Sensitivity Troponin; Complete Time: 18:00 rt 06/15 17:19 Order name: Magnesium; Complete Time: 18:00 rt 06/15 17:19 Order name: Protime (+inr); Complete Time: 18:00 rt 06/15 17:19 Order name: Ptt, Activated; Complete Time: 18:00 rt 06/15 17:45 Order name: Glucose, Ancillary Testing; Complete Time: 18:00 EDMS 06/15 17:19 Order name: CT Neck Angio; Complete Time: 18:55 rt 06/15 17:19 Order name: CT Stroke Brain w/o Contrast; Complete Time: 18:00 rt 06/15 17:19 Order name: Stroke CXR 1 View; Complete Time: 18:55 rt 06/15 18:24 Order name: Head angio; Complete Time: 18:55 EDMS 06/15 17:19 Order name: EKG; Complete Time: 17:19 rt 06/15 17:19 Order name: Accucheck; Complete Time: 17:41 rt 06/15 17:19 Order name: Cardiac monitoring; Complete Time: 17:36 rt 06/15 17:19 Order name: EKG - Nurse/Tech; Complete Time: 17:36 rt 06/15 17:19 Order name: IV Saline Lock; Complete Time: 17:41 rt 06/15 17:19 Order name: Labs collected and sent; Complete Time: 17:36 rt 06/15 17:19 Order name: NPO; Complete Time: 17:36 rt 06/15 17:19 Order name: O2 Per Protocol; Complete Time: 17:36 rt 06/15 17:19 Order name: O2 Sat Monitoring; Complete Time: 17:36 rt 06/15 17:19 Order name: Stroke Swallow Screen; Complete Time: 17:56 rt EC:41 Rate is 73 beats/min. Rhythm is regular, Normal Sinus Rhythm with No ectopy. Left axis rt deviation noted. AL interval is normal. QRS interval is normal. QT interval is normal. No Q waves. T waves are Normal. No ST changes noted. Interpreted by me. Administered Medications: 17:46 Drug: TNK FOR STROKE - Tenecteplase IV (Administer 10 ml NS flush BEFORE and rs5 AFTER tenecteplase) 0.25 mg/kg IV at per protocol once; MAX DOSE 25 mg, IVP over 5 seconds {Co-Signature: tl4 (Marty Galvez RN).} Route: IV; Rate: per protocol; Site: left antecubital; 19:01 Follow up: Response: Marked relief of symptoms; IV Status: Completed infusion pc2 Point of Care Testing: Blood Glucose: 17:33 Blood Glucose: 98 mg/dL; tm6 Ranges: Critical Glucose Levels:Adult <50 mg/dl or >400 mg/dl <40 mg/dl or >180 mg/dl Disposition Summary: 06/15/24 19:16 Transfer Ordered Notes: Transfer Location: [facility] rt Reason: Higher level of care rt Condition: Fair rt Problem: new rt Symptoms: have improved rt Accepting Physician: (06/15/24 20:53) pc2 Diagnosis - Acute CVA rt - Severe carotid stenosis rt Forms: - Medication Reconciliation Form rt - SBAR form rt Critical care time excluding procedures: 19:41 Critical care time: Bedside Care: 30 minutes, Consultation: 10 minutes. Total time: 40 rt minutes NIH Stroke Scale - NIH Stroke Score Date: 06/15/2024 Time: 17:16 Total Score = 1 10. Dysarthria (speech clarity - read or repeat words) - 0(Normal) 11. Extinction and Inattention (visual/tactile/auditory/spatial/personal) - 0(No abnormality) 1a. Level of Consciousness (LOC) - 0(Alert) 1b. Level of Consciousness (LOC) (Month \T\ Age) - 0(Both) 1c. LOC Commands (Open \T\ Closes Eyes/Oliving Machine Operator) - 0(Both) 2. Best Gaze (Lateral Gaze Paresis) - 0(Normal) 3. Visual Field Loss - 0(No visual loss) 4. Facial Palsy - 0(Normal) 5a. Left Arm: Motor (10-second hold) - 0(No drift) 5b. Right Arm: Motor (10-second hold) - 0(No drift) 6a. Left Leg: Motor (5-second hold - always test supine) - 1(Drift) 6b. Right Leg: Motor (5-second hold - always test supine) - 0(No drift) 7. Limb Ataxia (finger/nose \T\ heel/buchanan - test with eyes open) - 0(Absent) 8. Sensory Loss (pinprick arms/legs/face) - 0(Normal) 9. Best Language: Aphasia (description/naming/reading) - 0(No aphasia) Initials: rs5 NIH Stroke Scale - NIH Stroke Score Date: 06/15/2024 Time: 19:01 Total Score = 1 10. Dysarthria (speech clarity - read or repeat words) - 0(Normal) 11. Extinction and Inattention (visual/tactile/auditory/spatial/personal) - 0(No abnormality) 1a. Level of Consciousness (LOC) - 0(Alert) 1b. Level of Consciousness (LOC) (Month \T\ Age) - 0(Both) 1c. LOC Commands (Open \T\ Closes Eyes/Oliving Machine Operator) - 0(Both) 2. Best Gaze (Lateral Gaze Paresis) - 0(Normal) 3. Visual Field Loss - 0(No visual loss) 4. Facial Palsy - 0(Normal) 5a. Left Arm: Motor (10-second hold) - 0(No drift) 5b. Right Arm: Motor (10-second hold) - 0(No drift) 6a. Left Leg: Motor (5-second hold - always test supine) - 0(No drift) 6b. Right Leg: Motor (5-second hold - always test supine) - 0(No drift) 7. Limb Ataxia (finger/nose \T\ heel/buchanan - test with eyes open) - 0(Absent) 8. Sensory Loss (pinprick arms/legs/face) - 1(Mild to moderate loss) 9. Best Language: Aphasia (description/naming/reading) - 0(No aphasia) Initials: pc2 NIH Stroke Scale - NIH Stroke Score Date: 06/15/2024 Time: 19:16 Total Score = 1 10. Dysarthria (speech clarity - read or repeat words) - 0(Normal) 11. Extinction and Inattention (visual/tactile/auditory/spatial/personal) - 0(No abnormality) 1a. Level of Consciousness (LOC) - 0(Alert) 1b. Level of Consciousness (LOC) (Month \T\ Age) - 0(Both) 1c. LOC Commands (Open \T\ Closes Eyes/Oliving Machine Operator) - 0(Both) 2. Best Gaze (Lateral Gaze Paresis) - 0(Normal) 3. Visual Field Loss - 0(No visual loss) 4. Facial Palsy - 0(Normal) 5a. Left Arm: Motor (10-second hold) - 0(No drift) 5b. Right Arm: Motor (10-second hold) - 0(No drift) 6a. Left Leg: Motor (5-second hold - always test supine) - 0(No drift) 6b. Right Leg: Motor (5-second hold - always test supine) - 0(No drift) 7. Limb Ataxia (finger/nose \T\ heel/buchanan - test with eyes open) - 0(Absent) 8. Sensory Loss (pinprick arms/legs/face) - 1(Mild to moderate loss) 9. Best Language: Aphasia (description/naming/reading) - 0(No aphasia) Initials: pc2 NIH Stroke Scale - NIH Stroke Score Date: 06/15/2024 Time: 19:31 Total Score = 1 10. Dysarthria (speech clarity - read or repeat words) - 0(Normal) 11. Extinction and Inattention (visual/tactile/auditory/spatial/personal) - 0(No abnormality) 1a. Level of Consciousness (LOC) - 0(Alert) 1b. Level of Consciousness (LOC) (Month \T\ Age) - 0(Both) 1c. LOC Commands (Open \T\ Closes Eyes/Oliving Machine Operator) - 0(Both) 2. Best Gaze (Lateral Gaze Paresis) - 0(Normal) 3. Visual Field Loss - 0(No visual loss) 4. Facial Palsy - 0(Normal) 5a. Left Arm: Motor (10-second hold) - 0(No drift) 5b. Right Arm: Motor (10-second hold) - 0(No drift) 6a. Left Leg: Motor (5-second hold - always test supine) - 0(No drift) 6b. Right Leg: Motor (5-second hold - always test supine) - 0(No drift) 7. Limb Ataxia (finger/nose \T\ heel/buchanan - test with eyes open) - 0(Absent) 8. Sensory Loss (pinprick arms/legs/face) - 1(Mild to moderate loss) 9. Best Language: Aphasia (description/naming/reading) - 0(No aphasia) Initials: pc2 NIH Stroke Scale - NIH Stroke Score Date: 06/15/2024 Time: 19:46 Total Score = 1 10. Dysarthria (speech clarity - read or repeat words) - 0(Normal) 11. Extinction and Inattention (visual/tactile/auditory/spatial/personal) - 0(No abnormality) 1a. Level of Consciousness (LOC) - 0(Alert) 1b. Level of Consciousness (LOC) (Month \T\ Age) - 0(Both) 1c. LOC Commands (Open \T\ Closes Eyes/Oliving Machine Operator) - 0(Both) 2. Best Gaze (Lateral Gaze Paresis) - 0(Normal) 3. Visual Field Loss - 0(No visual loss) 4. Facial Palsy - 0(Normal) 5a. Left Arm: Motor (10-second hold) - 0(No drift) 5b. Right Arm: Motor (10-second hold) - 0(No drift) 6a. Left Leg: Motor (5-second hold - always test supine) - 0(No drift) 6b. Right Leg: Motor (5-second hold - always test supine) - 0(No drift) 7. Limb Ataxia (finger/nose \T\ heel/buchanan - test with eyes open) - 0(Absent) 8. Sensory Loss (pinprick arms/legs/face) - 1(Mild to moderate loss) 9. Best Language: Aphasia (description/naming/reading) - 0(No aphasia) Initials: pc2 NIH Stroke Scale - NIH Stroke Score Date: 06/15/2024 Time: 20:31 Total Score = 1 10. Dysarthria (speech clarity - read or repeat words) - 0(Normal) 11. Extinction and Inattention (visual/tactile/auditory/spatial/personal) - 0(No abnormality) 1a. Level of Consciousness (LOC) - 0(Alert) 1b. Level of Consciousness (LOC) (Month \T\ Age) - 0(Both) 1c. LOC Commands (Open \T\ Closes Eyes/Oliving Machine Operator) - 0(Both) 2. Best Gaze (Lateral Gaze Paresis) - 0(Normal) 3. Visual Field Loss - 0(No visual loss) 4. Facial Palsy - 0(Normal) 5a. Left Arm: Motor (10-second hold) - 0(No drift) 5b. Right Arm: Motor (10-second hold) - 0(No drift) 6a. Left Leg: Motor (5-second hold - always test supine) - 0(No drift) 6b. Right Leg: Motor (5-second hold - always test supine) - 0(No drift) 7. Limb Ataxia (finger/nose \T\ heel/buchanan - test with eyes open) - 0(Absent) 8. Sensory Loss (pinprick arms/legs/face) - 1(Mild to moderate loss) 9. Best Language: Aphasia (description/naming/reading) - 0(No aphasia) Initials: pc2 Signatures: Dispatcher [employer] Vahe Cleary MD MD rt Gene Garces RN RN rs5 Arias Borges RN RN tm6 Reina Hogan, RN RN pc2 Marty Galvez RN tl4 Corrections: (The following items were deleted from the chart) 17:51 17:44 Infectious Disease History: Denies. tm6 rs5 20:53 19:16 rt pc2
[2024-06-15 21:15] VITALS: TEMP 97.9
[2024-06-15 21:16] VITALS: BP 130/96; O2SAT 100
--- NOTE | 2024-06-16 12:37 | EKG ---
Test Date: 2024-06-15 Test Time: 17:34:37 [employer] Therapist: SENAIT MEASUREMENT RESULTS: Intervals: Rate: 73 SD: 154 QRSD: 90 QT: 384 QTc: 423 [place]: P: 16 SD: 154 QRS: -39 T: 28 INTERPRETIVE STATEMENTS: Normal sinus rhythm Left axis deviation Abnormal ECG Compared to ECG 06/25/2023 21:40:57 Left-axis deviation now present ST (T wave) deviation no longer present Myocardial infarct finding no longer present Electronically Signed On 06-16-24 12:36:11 CDT by Levon Hernandez
== END 2024-06-15 20:53 | disposition short-term general hospital (02) ==
LOC: ER 17:15
DX: I63.9 Cerebral infarction, unspecified (principal); I65.23 Occlusion and stenosis of bilateral carotid arteries; I10 Essential (primary) hypertension; R29.701 NIHSS score 1; E11.9 Type 2 diabetes mellitus without complications; I25.2 Old myocardial infarction
CPT/HCPCS: 92977; 93005; 96365; 99291; 99292

== ENCOUNTER 2024-10-16 16:26 | Emergency (ER) | payer OTHER ==
[2024-10-16] MEDS ORDERED: LIDOCAINE 1% 20 ML MDV ONE (16:48)
[2024-10-16] MEDS ORDERED: TDAP (DIPHTH,PERTUSS(ACELL),TET VAC) 0.5 ML VIAL IMVAC ONE (16:59)
--- NOTE | 2024-10-16 17:45 | RAD REPORT ---
Exam:Finger-Thumb Left CLINICAL HISTORY: Left finger pain FINDINGS: Comminuted avulsion fractures terminal tuft third distal phalanx. No dislocation.
[2024-10-16] MEDS ORDERED: LIDOCAINE 1% MPF 5 ML VIAL ONE (18:24)
[2024-10-16] MEDS ORDERED: CEFAZOLIN SODIUM 1 GM/VIAL ONE (18:25)
--- NOTE | 2024-10-16 18:36 | ER ---
Nurse's Notes [facility] Name: Joel Rodríguez Age: 54 yrs Sex: Male : 1970 Arrival Date: 10/16/2024 Time: 16:26 Bed 11 Private MD: Diagnosis: Laceration without foreign body of left middle finger with damage to nail;Displaced fracture of distal phalanx of left middle finger Presentation: 10/16 16:44 Chief complaint: Patient states: LACERATION TO MIDDLE FINGER OF LEFT HAND. STATES WAS db USING TABLE SAW AND IT CAME BACK. Coronavirus screen: Client denies travel out of the [place] in the last 14 days. At this time, the client does not indicate any symptoms associated with coronavirus-19. Ebola Screen: Patient negative for fever greater than or equal to 101.5 degrees Fahrenheit, and additional compatible Ebola Virus Disease symptoms Patient denies exposure to infectious person. Patient denies travel to an Ebola-affected area in the 21 days before illness onset. No symptoms or risks identified at this time. Complicating Factors: There are no complicating factors for this patient. Initial Sepsis Screen: Does the patient meet any 2 criteria? No. Patient's initial sepsis screen is negative. Does the patient have a suspected source of infection? No. Patient's initial sepsis screen is negative. Risk Assessment: Do you want to hurt yourself or someone else? Patient reports no desire to harm self or others. Onset of symptoms was October 16, 2024. 16:44 Method Of Arrival: Ambulatory db 16:44 Acuity: LATRICE 3 db Triage Assessment: 16:48 General: Appears in no apparent distress. comfortable, Behavior is calm, cooperative. db Pain: Complains of pain in left hand. Neuro: Level of Consciousness is awake, alert, obeys commands, Oriented to person, place, time, situation. Respiratory: Airway is patent Respiratory effort is even, unlabored, Respiratory pattern is regular, symmetrical. Injury Description: Laceration sustained to left hand is bleeding moderately. Historical: - Allergies: 16:48 No Known Allergies; db - PMHx: 16:48 diabetes mellitus; Hypertensive disorder; Myocardial infarction; db - Immunization history:: Adult Immunizations unknown. - Infectious Disease History:: Denies. - Social history:: Smoking status: Patient denies any tobacco usage or history of. Screenin:03 [facility] ED Fall Risk Assessment (Adult) History of falling in the last 3 months, ld1 including since admission No falls in past 3 months (0 pts) Confusion or Disorientation No (0 pts) Intoxicated or Sedated No (0 pts) Impaired Gait No (0 pts) Mobility Assist Device Used No (0 pt) Altered Elimination No (0 pt) Score/Fall Risk Level 0 - 2 = Low Risk Oriented to surroundings, Maintained a safe environment, Educated pt \T\ family on fall prevention, incl call for assistance when getting out of bed, Assessed \T\ reinforced patient's understanding of fall precautions, Provided non-skid footwear, Hourly rounding (assess needs \T\ fall precautionary measures) done, Used ambulatory aids as needed (educated on \T\ assisted with), Used gait belt as appropriate. Abuse screen: Denies threats or abuse. Denies injuries from another. Nutritional screening: No deficits noted. Tuberculosis screening: No symptoms or risk factors identified. Assessment: 17:03 Reassessment:. General: Appears in no apparent distress. comfortable, Behavior is calm, ld1 cooperative, appropriate for age. Pain: Complains of pain in dorsal aspect of distal phalanx of left middle finger and left middle fingernail Pain does not radiate. Pain currently is 6 out of 10 on a pain scale. Quality of pain is described as throbbing, Pain began suddenly, Is continuous. Neuro: Level of Consciousness is awake, alert, obeys commands, Oriented to person, place, time, situation. Neuro: Cardiovascular: Capillary refill < 3 seconds Patient's skin is warm and dry. Respiratory: Airway is patent Respiratory effort is even, unlabored. GI: Abdomen is flat, non-distended. : No signs and/or symptoms were reported regarding the genitourinary system. EENT: No signs and/or symptoms were reported regarding the EENT system. Derm: No signs and/or symptoms reported regarding the dermatologic system. Musculoskeletal: No signs and/or symptoms reported regarding the musculoskeletal system. Vital Signs: 16:44 BP 127 / 86; Pulse 76; Resp 16; Temp 97.3; Pulse Ox 97% ; Weight 103.87 kg; Height 5 db ft. 11 in. ; Pain 4/10; 17:03 BP 129 / 84; Pulse 71; Resp 18; Pulse Ox 98% on R/A; Pain 7/10; ld1 16:44 Body Mass Index 31.94 (103.87 kg, 180.34 cm) db 16:44 Pain Scale: Adult db 17:03 Pain Scale: Adult ld1 ED Course: 16:27 Patient arrived in ED. ra3 16:29 [facility]ancino [facility]-C [facility] dr5 16:29 Natalio Hernandez MD is Attending Physician. dr5 16:48 Triage completed. db 16:48 Arm band placed on Patient placed in an exam room. db 16:51 Mandy Shipley RN is Primary Nurse. ld1 17:03 Patient has correct armband on for positive identification. Placed in gown. Bed in low ld1 position. Call light in reach. Side rails up X2. nuclear monitoring technician on. Pulse ox on. NIBP on. Door closed. Noise minimized. Warm blanket given. 17:39 Finger-Thumb LEFT XRAY In Process Unspecified. EDMS 18:32 Assist provider with laceration repair on left hand using sutures. Set up tray. ld1 Performed by Chris RAYMUNDO Patient tolerated well. 18:52 Patient did not have IV access during this emergency room visit. ld1 Administered Medications: 17:03 Drug: Boostrix Tdap IM 0.5 ml IM once; as a single dose Route: IM; Site: left deltoid; ld1 17:03 Follow up: Response: (VIS) Vaccine information sheet provided today. Questions and/or ld1 concerns addressed. VIS edition date: May 19, 2021.; No adverse reaction 18:31 Drug: Lidocaine Infiltration (1 %) 20 ml 20 ml Infiltration once; to bedside {Note: ld1 Administered by FNP. Chris} Volume: 20 ml; Route: Infiltration; 18:31 Drug: CeFAZolin IM 1 grams IM once Route: IM; Site: right deltoid; ld1 18:32 Follow up: Response: No adverse reaction ld1 Medication: 17:03 Vaccine Information Statement (VIS) provided today. Questions and/or concerns ld1 addressed. VIS edition date: October 16, 2024. Outcome: 18:36 Discharge ordered by . dr5 18:52 Discharged to home ambulatory, ld1 18:52 Condition: stable 18:52 Discharge instructions given to patient, Instructed on discharge instructions, follow up and referral plans. medication usage, Demonstrated understanding of instructions, follow-up care, medications, Prescriptions given X 1, 18:52 Patient left the ED. ld1 Signatures: Dispatcher [employer] EDMS Mandy Shipley RN RN ld1 Vibha Mariscal RN RN Aurora Gustafson ra3 Chris Cancino, IT ANALYST-C IT ANALYST-Cdr5
--- NOTE | 2024-10-16 18:36 | EDPHYS ---
Physician Documentation [facility] Name: Joel Rodríguez Age: 54 yrs Sex: Male : 1970 Arrival Date: 10/16/2024 Time: 16:26 Bed 11 Private MD: ED Physician Natalio Hernandez HPI: 10/16 19:01 This 54 yrs old Male presents to ER via Ambulatory with complaints of dr5 Laceration - left middle finger. 19:01 Onset: The symptoms/episode began/occurred acutely. dr5 19:01 The patient has a laceration related to: doing carpentry, from a hand saw, occurred at [facility] home, The injury was accidental. The laceration(s) is(are) located on the dorsal aspect of distal phalanx of left middle finger and left middle fingernail. Patient is a 54-year-old male with history of hypertension, diabetes, AR, stroke coming in with laceration to the end of left middle finger from a table saw. Patient does not know last tetanus immunization. Patient currently on Plavix.. Historical: - Allergies: 16:48 No Known Allergies; db - PMHx: 16:48 diabetes mellitus; Hypertensive disorder; Myocardial infarction; db - Immunization history:: Adult Immunizations unknown. - Infectious Disease History:: Denies. - Social history:: Smoking status: Patient denies any tobacco usage or history of. ROS: 19:01 Constitutional: as per hpi dr5 Exam: 19:01 Constitutional: This is a well developed, well nourished patient who is awake, alert, dr5 and in no acute distress. Head/Face: Normocephalic, atraumatic. Eyes: Pupils equal round and reactive to light, extra-ocular motions intact. Lids and lashes normal. Conjunctiva and sclera are non-icteric and not injected. Cornea within normal limits. Periorbital areas with no swelling, redness, or edema. Chest/axilla: Normal chest wall appearance and motion. Nontender with no deformity. No lesions are appreciated. Cardiovascular: Regular rate and rhythm with a normal S1 and S2. Normal PMI, no JVD. No pulse deficits. Respiratory: Lungs have equal breath sounds bilaterally, clear to auscultation. No rales, rhonchi or wheezes noted. No increased work of breathing, no retractions or nasal flaring. Back: No spinal tenderness. No costovertebral tenderness. Full range of motion. 19:01 Musculoskeletal/extremity: Extremities: noted in the dorsal aspect of distal phalanx of left middle finger and palmar aspect of distal phalanx of left middle finger: laceration, ROM: no acute changes, intact in all extremities, Circulation is intact in all extremities. Pulses: noted to be 2+ in the left radial artery, Perfusion: the extremity is normally perfused throughout, pink, numbness, Nails: partial avulsion, of the left middle fingernail, 19:01 Skin: injury, laceration(s), the wound is approximately 4 cm(s), with a depth of 2 cm(s), of the dorsal aspect of distal phalanx of left middle finger, palmar aspect of distal phalanx of left middle finger and left middle fingernail, Vital Signs: 16:44 BP 127 / 86; Pulse 76; Resp 16; Temp 97.3; Pulse Ox 97% ; Weight 103.87 kg; Height 5 db ft. 11 in. ; Pain 4/10; 17:03 BP 129 / 84; Pulse 71; Resp 18; Pulse Ox 98% on R/A; Pain 7/10; ld1 16:44 Body Mass Index 31.94 (103.87 kg, 180.34 cm) db 16:44 Pain Scale: Adult db 17:03 Pain Scale: Adult ld1 Laceration: 19:01 Wound Repair of 4cm ( 1.6in ) subcutaneous laceration to dorsal aspect of distal dr5 phalanx of left middle finger and palmar aspect of distal phalanx of left middle finger. Irregularly shaped.. Profuse bleeding noted.. Hemostasis noted.. Distal neuro/vascular/tendon intact. Anesthesia: Digital block administered with 3 mls of 1% lidocaine. Wound prep: Extensive cleansing with hibiclenz by ct, Wound irrigation with saline by ct, Copious irrigation. Skin closed with 8 4-0 Prolene using simple sutures and sterile technique. Dressed with non-adherent dressing, Finger Splint. Patient tolerated well. MDM: 16:30 Medical Screening Exam initiated dr5 19:01 Differential diagnosis: superficial laceration, tendon injury, vascular injury, dr5 Fracture. Data reviewed: vital signs, nurses notes, radiologic studies, plain films, I have discussed the patient's presentation/case with the attending Emergency Department Physician;. I considered the following discharge prescriptions or medication management in the emergency department Medications were administered in the Emergency Department. See MAR Abx given in ER.. Historians other than the Patient: Spouse/Significant Other: . Care significantly affected by the following chronic conditions: Diabetes, Hypertension, AR, CVA. Care significantly affected by the following Social Determinants of Health: Poor access to healthcare and/or lack of insurance, Poor access to transportation, Problems related to employment. Counseling: I had a detailed discussion with the patient and/or guardian regarding the historical points, exam findings, and any diagnostic results supporting the discharge/admit diagnosis, the presence of at least one elevated blood pressure reading (>120/80) during this emergency department visit, radiology results, the need for outpatient follow up, for definitive care, a family practitioner, a hand specialist, Dr. Bobby Epps, to return to the emergency department if symptoms worsen or persist or if there are any questions or concerns that arise at home. Medication response: Lidocaine. Response to treatment: the patient's symptoms have resolved after treatment. ED course: Boostrix updated in ER. Laceration repair completed with 8 sutures. Recommended patient follow up with Dr. Bobby Epps. Ancef given in ER. Keflex prescribed. Recommended dressing change tomorrow evening. All questions answered. Discussed case with Dr. Hernandez who agrees with plan. All questions answered.. 10/16 16:57 Order name: Finger-Thumb LEFT XRAY; Complete Time: 17:50 dr5 10/16 16:57 Order name: Dressing - Wound; Complete Time: 16:58 dr5 10/16 16:57 Order name: Prolene, Sutures; Complete Time: 16:58 dr5 10/16 16:57 Order name: Setup Suture Tray; Complete Time: 16:58 dr5 10/16 18:37 Order name: Finger Splint; Complete Time: 18:51 dr5 Administered Medications: 17:03 Drug: Boostrix Tdap IM 0.5 ml IM once; as a single dose Route: IM; Site: left deltoid; ld1 17:03 Follow up: Response: (VIS) Vaccine information sheet provided today. Questions and/or ld1 concerns addressed. VIS edition date: May 19, 2021.; No adverse reaction 18:31 Drug: Lidocaine Infiltration (1 %) 20 ml 20 ml Infiltration once; to bedside {Note: ld1 Administered by TASHA Perez.} Volume: 20 ml; Route: Infiltration; 18:31 Drug: CeFAZolin IM 1 grams IM once Route: IM; Site: right deltoid; ld1 18:32 Follow up: Response: No adverse reaction ld1 Disposition Summary: 10/16/24 18:36 Discharge Ordered Notes: Location: Home dr5 Condition: Stable dr5 Diagnosis - Laceration without foreign body of left middle finger with damage to nail dr5 - Displaced fracture of distal phalanx of left middle finger dr5 Followup: dr5 - With: Emergency Department - When: As needed - Reason: Worsening of condition Followup: dr5 - With: Private Physician - When: 1 - 2 days - Reason: Recheck today's complaints, Continuance of care, Re-evaluation by your physician Discharge Instructions: - Discharge Summary Sheet dr5 - Finger Fracture, Adult dr5 - Laceration Care, Adult dr5 Forms: - Medication Reconciliation Form dr5 - Antibiotic Education dr5 - Patient Portal Instructions dr5 - Leadership Thank You Letter dr5 Prescriptions: - Cephalexin 500 mg Oral Capsule - take 1 capsule ORAL route every 6 hours for 10 days; 40 capsule; Refills: 0, dr5 Product Selection Permitted Addendum: 10/20/2024 15:34 Co-signature as Attending Physician, Natalio Hernandez MD I agree with the assessment and c page plan of care. Signatures: Dispatcher [employer] Natalio Allan MD MD cha Sims, Lauren, RN RN ld1 Vibha Mariscal RN RN db Chris Cancino FNP-C CRYOGENICS ENGINEER-Cdr5
[2024-10-16 19:56] VITALS: TEMP 97.3
[2024-10-16 19:57] VITALS: BP 129/84; O2SAT 98
== END 2024-10-16 18:52 | disposition home or self-care (01) ==
LOC: ER 16:26
PROC: 2W3KX1Z Immobilization of Left Finger using Splint (ICD-10-PCS; principal; 2024-10-16)
DX: S61.313A Laceration without foreign body of left middle finger with damage to nail, initial encounter (principal); S62.633A Displaced fracture of distal phalanx of left middle finger, initial encounter for closed fracture; Z79.01 Long term (current) use of anticoagulants
CPT/HCPCS: 73140; 96372; 99285; 12042; 29130; J2003 ×2; J0690